=== PATIENT | male | born 1975 | race Caucasian/White ===

== ENCOUNTER 2021-01-15 09:17 | Outpatient (CLI) | payer BC, OTHER | END 2021-01-15 09:18 | disposition home or self-care (01) | LOC: BICRAD 09:17 | PROVIDERS: ATTEND Nurse Practitioner Family | DX: M54.2 Cervicalgia (principal); M47.812 Spondylosis without myelopathy or radiculopathy, cervical region | CPT/HCPCS: 72040 ==

== ENCOUNTER 2021-04-23 18:30 | Outpatient (CLI) | payer OTHER | END 2021-04-23 18:31 | disposition home or self-care (01) | LOC: SLEEPLAB 18:30 | PROVIDERS: ATTEND Psychiatry & Neurology Neurology | DX: G47.9 Sleep disorder, unspecified (principal); G47.33 Obstructive sleep apnea (adult) (pediatric); R06.83 Snoring | CPT/HCPCS: 95806 ==

== ENCOUNTER 2021-09-14 19:00 | Outpatient (CLI) | payer OTHER | END 2021-09-14 19:01 | disposition home or self-care (01) | LOC: SLEEPLAB 19:00 | PROVIDERS: ATTEND Nurse Practitioner Family | DX: G47.33 Obstructive sleep apnea (adult) (pediatric) (principal); R53.83 Other fatigue; R51.9 Headache, unspecified; R06.83 Snoring; G47.00 Insomnia, unspecified; R35.1 Nocturia; G47.10 Hypersomnia, unspecified; G45.9 Transient cerebral ischemic attack, unspecified; I10 Essential (primary) hypertension; E66.9 Obesity, unspecified; Z68.33 Body mass index [BMI] 33.0-33.9, adult | CPT/HCPCS: 95811 ==

== ENCOUNTER 2023-07-25 14:02 | Outpatient (CLI) | payer OTHER | END 2023-07-25 14:03 | disposition home or self-care (01) | LOC: BICRAD 14:02 | PROVIDERS: ATTEND Nurse Practitioner Family | DX: M54.50 Low back pain, unspecified (principal); M47.816 Spondylosis without myelopathy or radiculopathy, lumbar region | CPT/HCPCS: 72100 ==